=== PATIENT | female | born 1930 | race Caucasian/White ===

== ENCOUNTER 2020-05-07 08:52 | Inpatient (IN) ==
[2020-05-07 09:18] LABS: Hematocrit 44.7 % (37.0-47.0); Hemoglobin 14.9 gm/dL (12.5-16.0); Mean Cell Volume 99.1 fl (78-100); Mean Corpuscular Hgb Conc 33.3 g/dl (32-36); Neutrophil % 81.7 % (42-75.0); Platelet Count 255 K/mm3 (150-450); Red Blood Count 4.51 M/mm3 (4.2-5.4); Red Cell Distribution Width 12.9 % (11.5-14.0); White Blood Count 13.5 K/mm3 (4.0-10.5)
[2020-05-07 09:22] LABS: Urine Bilirubin 1 mg/dl (NEGATIVE); Urine Blood 50 /ul (NEGATIVE); Urine Ketone 5 mg/dL (NEGATIVE); Urine Nitrite Negative (NEGATIVE); Urine Protein 30 mg/dL (NEGATIVE); Urine Specific Gravity >=1.030 SP.GR. (1.005-1.010); Urine Urobilinogen Normal (NORMAL)
[2020-05-07 09:35] LABS: Urine Appearance Cloudy (CLEAR); Urine Color Yellow; Urine WBC 25-50 /hpf (0-5)
[2020-05-07 09:36] LABS: Urine Bacteria 4+; Urine RBC 25-50 /hpf (0-5)
[2020-05-07] MEDS ORDERED: NORMAL SALINE 1,000 ML IV ONE (09:39)
[2020-05-07 09:42] LABS: Prothrombin Time (Patient) 10.4 Seconds (9.1-10.7)
[2020-05-07 09:43] LABS: Partial Thrombolplastin Time 22.9 Seconds (24-32)
[2020-05-07 09:45] LABS: Albumin * 4.3 gm/dl (3.4-5.0); Anion Gap 16.2 mmol/L (6.8-13.8); BUN/Creatinine Ratio 18.6 (9.0-21.6); Bilirubin, Total 0.8 mg/dL (0.0-1.1); Ca. Corrected For Albumin 8.6 mg/dL (8.4-10.2); Calcium * 9.2 mg/dL (7.9-10.9); Carbon Dioxide 24.2 mmol/L (24-32.6); Potassium 3.4 mmol/L (3.4-4.6); Total Protein 8.4 gm/dL (6.2-8.2)
--- NOTE | 2020-05-07 09:58 | ERNOTE ---
Neuro HPI ER Record Date of Service: 05/07/20 Presenting Symptoms: impaired speech Time Seen by Provider: 05/07/20 09:13 Source: patient Exam Limitations: no limitations Immunizations: IMMUNIZATION HX Immunizations Up to Date Yes Allergies/Adverse Reactions: Allergies Allergy/AdvReac Type Severity Reaction Status Date / Time tetanus toxoid, adsorbed Allergy Intermediate swollen arm Verified 05/07/20 09:19 Home Medications: HOME MEDICATIONS aspirin 81 mg tablet,delayed release 81 mg PO DAILY 12/15/17 [Last Taken Unknown] levetiracetam 500 mg tablet 500 mg PO BID tab 12/15/17 [Last Taken Unknown] amlodipine 10 mg tablet See Rx Instructions .ROUTE .COMPLEX #90 tab 10/22/19 [Last Taken Unknown] metoprolol tartrate 50 mg tablet 75 mg PO BID #90 tab 01/11/20 [Last Taken Unknown] digoxin 125 mcg (0.125 mg) tablet 125 mcg PO DAILY #90 tab 03/27/20 [Last Taken Unknown] - History of Present Illness Narrative: Patient presents to the ED for trouble speaking. She thinks that this happened sometime overnight. Last time family knew her well was 2 days ago. She lives at home alone. Trouble with speech. No pain. Denies N/T/W in the extremities. NO trauma. Never had anything like this before. Onset: other - last known well 2 days ago but she thinks it happened last night Severity: moderate - Character of Deficits Additional Deficits: Absent: vision problems, weakness Associated Symptoms: Denies: fever/chills, sweating, chest pain, headache, altered mental status, unresponsive Prior Treament: Denies: recently seen, similar symptoms before Review of Systems - Narrative Narrative: Unable to obtain ROS d/t patient condition/dysarthria Medical History (Last Reviewed 05/07/20 @ 09:49 by Sunny Tang MD) History of restless legs syndrome (Chronic) Onset Date: Unknown Osteoarthritis (Chronic) Onset Date: Unknown Anticoagulant long-term use (Chronic) Onset Date: ~03/26/11 Insomnia disorder (Chronic) Onset Date: ~03/26/11 Impaired fasting glucose (Chronic) Onset Date: Unknown Hypertension (Chronic) Onset Date: Unknown Hyperlipidemia (Chronic) Onset Date: ~07/21/07 Glaucoma (Chronic) Onset Date: Unknown History of gastroesophageal reflux (GERD) (Chronic) Onset Date: Unknown UTI (urinary tract infection) (Chronic) Onset Date: Unknown frequent Dysphagia (Chronic) Onset Date: Unknown CAD (coronary artery disease) (Chronic) Onset Date: ~03/26/11 Atrial fibrillation (Chronic) Onset Date: Unknown Aphasia (Chronic) Onset Date: Unknown Myocardial infarction Onset Date: ~08/17/10 during left knee surgery Refused influenza vaccine Onset Date: ~03/22/18 Subdural hematoma Onset Date: ~01/2014 caused by a fall and pt being on therapeutic warfarin History of seizures Onset Date: Unknown Sepsis Onset Date: Unknown due to serratia Vitamin B12 deficiency Onset Date: Unknown Surgical History: Surgical History (Last Reviewed 05/07/20 @ 09:49 by Sunny Tang MD) Bone abscess Onset Date: ~03/1983 Right lower leg History of craniotomy Onset Date: ~01/2014 [place] hole and craniotomy due to a traumatic large subdural hematoma that was caused by a fall and pt being on therapeutic warfarin. 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 Mother , unknown age; unknown cause of No problems noted. 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 level of school completed/degree received: Associate degree: occupat Service: No Tobacco: Smoking Status: Never smoker Alcohol: alcohol intake: never Substance Use: substance use type: unknown Dietary Habits: caffeine: Yes Physical Exam - Physical Exam General Appearance: Present: alert, no apparent distress Head Exam: Present: normal inspection, no evidence of injury Eye Exam: Normal inspection: bilateral, PERRL: bilateral Ears, Nose, Throat: Present: dry mucous membranes - NIH - 5 Neck: Present: normal inspection Respiratory: Present: no respiratory distress, normal breath sounds, no acces garland muscle use, lungs clear Cardiovascular/Chest: Present: regular rate, rhythm, normal peripheral pulses Gastrointestinal/Abdominal: Present: normal bowel sounds, nontender, nondistended, soft Back Exam: Absent: CVA tenderness (R), CVA tenderness (L) Extremity Exam: Absent: joint swelling Neurological Exam: Present: alert, other - She has dysarthria, left facial droop with presenved forehead strength. Skin Exam: Present: normal color, warm/dry Progress - Results and Orders Patient's Lab Results:: I have reviewed the patient's lab results. - Vital Signs Patient's Vital Signs:: I have reviewed the patient's vital signs. Vital Signs: Vital Signs 05/07/20 08:52 05/07/20 09:26 Temperature 36 C Pulse Rate 96 92 Respiratory Rate 21 H Blood Pressure 141/67 O2 Sat by Pulse Oximetry 98 - EKG EKG #1 EKG: atrial fibrillation EKG read: Interp. by me EKG Comments: A FIB rate 86. Non-specific ST/T wave changes, likely digoxin. No clear STEMI - X-Ray X-Ray #1 X-Ray: chest Interpretation: Interp. by me X-ray Comments: I personally reviewed CXR image as well as official radiology report - CT/Ultrasound CT/Ultrasound Narrative: I reviewed official radiology report for CT head - Progress/Reassessment Chief Complaint: CerebroVascular Accident Progress Note-Subjective: 05/07/20 10:[address] Estrella who will admit. Patient understands need for admission. NPO for now, I have ordered swallow study. UTI treated. Clinically has had a stroke. Out of any treatment window. I discussed warning signs and reasons to return as well as the need for close f/u. Departure Clinical Impression: Stroke-like symptoms, UTI (urinary tract infection) - Departure Disposition: Still a patient Condition: Fair Referrals: Dorothy Kwok MD [Primary Care Provider] -
[2020-05-07] MEDS ORDERED: cefTRIAXone SODIUM 1,000 MG/100 ML BAG IV ONE (10:03)
[2020-05-07] MEDS ORDERED: ACETAMINOPHEN 500 MG TABLET PO PRN (12:19)
[2020-05-07] MEDS ORDERED: LORazepam 2 MG/ML DISP.SYRIN IM ONE (12:42)
[2020-05-07] MEDS ORDERED: LORazepam 2 MG/ML DISP.SYRIN IV ONE (12:42)
--- NOTE | 2020-05-07 13:01 | HP ---
Chief Complaint - Chief Complaint Date of Service: 05/07/20 Time of Service: 12:43 Chief Complaint: I have weakness on my left side. History of Present Illness: 89-year-old female with past medical history of hypertension, hyperlipidemia, atrial fibrillation, glaucoma, CAD, previous [place], CKD3, was evaluated in the ER after she was brought in by EMS for strokelike symptoms. The patient reports going to bed asymptomatic last night but during the night she developed weakness on her left side which affected her upper and lower extremity and speech. Once in the ER the patient was noted to have facial droop and left hemiparesis. She is completely awake and alert in response to verbal and tactile stimuli. The patient was able to provide a history but she has severe Broca's aphasia which makes it difficult to understand her. The patient lives alone and family reports the last time she was noted to be normal was 2 days ago however upon questioning her she reports being normal until last night. Based on the history it is very apparent that the patient is outside of the therapeutic window for administration of clot busting medications. It is unclear at the moment whether or not the patient is able to safely swallow so f or now we will treat her with IV or IM medications and consult the speech therapist for an evaluation. The patient maintained stable vitals and is resting comfortably for now . Brain MRI has been ordered for further evaluation. Of note the patient has a long history of atrial fibrillation but due to a subdural hematoma secondary to a fall that occurred several years ago and her persistent high fall risk, she has not been on anticoagulation for multiple years. It is likely that this increased her risk for stroke. After evaluating the patient at bedside we will determine best anticoagulants and antiplatelet therapy for her, especially after we get results from the speech therapist. Incidentally the patient was also found to have a UTI on the urinalysis done in the ER, so we will also treat her with IV antibiotics. Medical History (Last Reviewed 05/07/20 @ 09:49 by Sunny Tang MD) History of restless legs syndrome (Chronic) Onset Date: Unknown Osteoarthritis (Chronic) Onset Date: Unknown Anticoagulant long-term use (Chronic) Onset Date: ~03/26/11 Insomnia disorder (Chronic) Onset Date: ~03/26/11 Impaired fasting glucose (Chronic) Onset Date: Unknown Hypertension (Chronic) Onset Date: Unknown Hyperlipidemia (Chronic) Onset Date: ~07/21/07 Glaucoma (Chronic) Onset Date: Unknown History of gastroesophageal reflux (GERD) (Chronic) Onset Date: Unknown UTI (urinary tract infection) (Chronic) Onset Date: Unknown frequent Dysphagia (Chronic) Onset Date: Unknown CAD (coronary artery disease) (Chronic) Onset Date: ~03/26/11 Atrial fibrillation (Chronic) Onset Date: Unknown Aphasia (Chronic) Onset Date: Unknown Myocardial infarction Onset Date: ~08/17/10 during left knee surgery Refused influenza vaccine Onset Date: ~03/22/18 Subdural hematoma Onset Date: ~01/2014 caused by a fall and pt being on therapeutic warfarin History of seizures Onset Date: Unknown Sepsis Onset Date: Unknown due to serratia Vitamin B12 deficiency Onset Date: Unknown Surgical History: Surgical History (Last Reviewed 05/07/20 @ 09:49 by Sunny Tang MD) Bone abscess Onset Date: ~03/1983 Right lower leg History of craniotomy Onset Date: ~01/2014 [place] hole and craniotomy due to a traumatic large subdural hematoma that was caused by a fall and pt being on therapeutic warfarin. done at [facility] History of left knee replacement Onset Date: ~08/17/10 [facility] History of partial hysterectomy Onset Date: ~12/1967 Skin cancer of face Onset Date: ~07/2013 nose and upper lip area, left cheek Family History: Family History (Last Reviewed 05/07/20 @ 09:49 by Sunny Tang MD) Father , age unknown; unknown cause of No problems noted. Mother , unknown age; unknown cause of No problems noted. 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 level of school completed/degree received: Associate degree: occupat Service: No Tobacco: Smoking Status: Never smoker Alcohol: alcohol intake: never Substance Use: substance use type: unknown Dietary Habits: caffeine: Yes Peds Patient Hx - Developmental: No Pertinent Hx Peds Patient Hx - Medical: No Pertinent Hx Peds Patient Hx - Cardiac/Respiratory: No Pertinent Hx Peds Patient Hx - Surgical: No Surgical History Patient History - Cancer: No Hx of Cancer Review Of Systems (GEN) - Review of Systems Generalized/Overall Review: Present: Weakness EENTM: Present: No Symptoms Reported Respiratory: Present: No Symptoms Reported Cardiac: Present: No Symptoms Reported Abdominal: Present: No Symptoms Reported Genitourinary: Present: No Symptoms Reported Musculoskeletal: Present: No Symptoms Reported Neurological: Present: Weakness, Other - Left-sided weakness Skin: Present: No Symptoms Reported Endocrine: Present: No Symptoms Reported Immunizations: IMMUNIZATION HX Immunizations Up to Date Yes Allergies/Adverse Reactions: Allergies Allergy/AdvReac Type Severity Reaction Status Date / Time tetanus toxoid, adsorbed Allergy Intermediate swollen arm Verified 05/07/20 09:19 Home Medications: HOME MEDICATIONS aspirin 81 mg tablet,delayed release 81 mg PO DAILY 12/15/17 [Last Taken Unknown] levetiracetam 500 mg tablet 500 mg PO BID tab 12/15/17 [Last Taken Unknown] amlodipine 10 mg tablet See Rx Instructions .ROUTE .COMPLEX #90 tab 10/22/19 [Last Taken Unknown] metoprolol tartrate 50 mg tablet 75 mg PO BID #90 tab 01/11/20 [Last Taken Unknown] digoxin 125 mcg (0.125 mg) tablet 125 mcg PO DAILY #90 tab 03/27/20 [Last Taken Unknown] Exam - Exam Vital Signs: Vital Signs - Last Taken Temp 36 C 05/07/20 11:25 Pulse 97 05/07/20 11:25 Resp 19 05/07/20 11:25 BP 135/53 05/07/20 11:25 Pulse Ox 100 05/07/20 11:25 Constitutional: Present: Alert, Oriented x3, Cooperative, Well developed, Well n ourished, No distress, Elderly ENT Exam: Present: normal ENT inspection, hard of hearing Eye Exam: bilateral eye: normal inspection, PERRL, EOMI Neck: Present: non-tender, full range of motion, supple, normal inspection, trachea midline Back Exam: Present: normal inspection, no CVA tenderness, no vertebral tenderness Breasts: Present: Exam deferred, Nontender Respiratory: Present: chest non-tender, lungs clear, normal breath sounds, no respiratory distress, no accessory muscle use Cardiovascular/Chest: Present: normal peripheral pulses, no chest tenderness, no edema, no gallop, no JVD, no murmur, irregularly irregular Abdomen: Present: Normal bowel sounds, soft, nontender, nondistended, no rebound tenderness, no hepatospenomegaly, no masses /Rectal: Present: Exam deferred Extremity: Present: normal range of motion, non-tender, normal inspection, no pedal edema, no calf tenderness, normal capillary refill, pelvis stable Skin Exam: Present: normal color, warm/dry, no cyanosis Lymphatic: Present: no adenopathy Neurologic: Present: alert, normal mood/affect, oriented x 3, abnormal director of provider relations II- XII - Left hemiparesis, aphasia, facial droop, motor weakness Appearance: Present: appropriate appearance, appropriate insight, neat, no memory impairment Eye contact: Present: cooperative, good eye contact, normal speech Thoughts: Present: normal thought pattern, no apparent hallucination Diagnostic Studies: Abnormal Lab Results 05/07/20 05/07/20 05/07/20 Range/Units 09:15 09:16 09:16 WBC 13.5 H (4.0-10.5) K/mm3 MCH 33.0 H (27-31) pg Immature Gran % (Auto) 0.50 H (0.001-0.429) % Immature Gran # (Auto) 0.07 H (0.000-0.0310) K/mm3 Neutrophils % 81.7 H (42-75.0) % Lymphocytes % 11.0 L (20-51) % Neutrophils # 11.0 H (1.3-6.0) K/mm3 Lymphocytes # 1.49 L (1.5-3.5) k/mm3 ESR 26 H (0-15) mm/hr PTT ([place]athon) (24-32) Seconds Anion Gap (6.8-13.8) mmol/L BUN (3-23) mg/dL Est GFR (Non-Af Amer) (60-130) mL/min Random Glucose (70-110) mg/dL Total Protein (6.2-8.2) gm/dL Urine Protein 30 H (NEGATIVE) mg/dL Urine Blood 50 H (NEGATIVE) /ul Urine Bilirubin 1 H (NEGATIVE) mg/dl Ur Leukocyte Esterase 25 H (NEGATIVE) /ul Urine RBC 25-50 H (0-5) /hpf Urine WBC 25-50 H (0-5) /hpf Urine Bacteria 4+ H (NONE) 05/07/20 05/07/20 Range/Units 09:16 09:16 WBC (4.0-10.5) K/mm3 MCH (27-31) pg Immature Gran % (Auto) (0.001-0.429) % Immature Gran # (Auto) (0.000-0.0310) K/mm3 Neutrophils % (42-75.0) % Lymphocytes % (20-51) % Neutrophils # (1.3-6.0) K/mm3 Lymphocytes # (1.5-3.5) k/mm3 ESR (0-15) mm/hr PTT (Marathon) 22.9 L (24-32) Seconds Anion Gap 16.2 H (6.8-13.8) mmol/L BUN 24 H (3-23) mg/dL Est GFR (Non-Af Amer) 41 L D (60-130) mL/min Random Glucose 198 H (70-110) mg/dL Total Protein 8.4 H (6.2-8.2) gm/dL Urine Protein (NEGATIVE) mg/dL Urine Blood (NEGATIVE) /ul Urine Bilirubin (NEGATIVE) mg/dl Ur Leukocyte Esterase (NEGATIVE) /ul Urine RBC (0-5) /hpf Urine WBC (0-5) /hpf Urine Bacteria (NONE) Laboratory Results WBC 13.5 K/mm3 (4.0-10.5) H 05/07/20 09:16 RBC 4.51 M/mm3 (4.2-5.4) 05/07/20 09:16 Hgb 14.9 gm/dL (12.5-16.0) 05/07/20 09:16 Hct 44.7 % (37.0-47.0) 05/07/20 09:16 MCV 99.1 fl (78-100) 05/07/20 09:16 MCH 33.0 pg (27-31) H 05/07/20 09:16 MCHC 33.3 g/dl (32-36) 05/07/20 09:16 RDW 12.9 % (11.5-14.0) 05/07/20 09:16 Plt Count 255 K/mm3 (150-450) 05/07/20 09:16 MPV 10.0 fl (8-12.5) 05/07/20 09:16 Immature Gran % (Auto) 0.50 % (0.001-0.429) H 05/07/20 09:16 Immature Gran # (Auto) 0.07 K/mm3 (0.000-0.0310) H 05/07/20 09:16 Neutrophils % 81.7 % (42-75.0) H 05/07/20 09:16 Lymphocytes % 11.0 % (20-51) L 05/07/20 09:16 Monocytes % 5.7 % (0.0-9) 05/07/20 09:16 Eosinophils % 0.7 % (0.0-3.0) 05/07/20 09:16 Basophils % 0.4 % (0.0-1.0) 05/07/20 09:16 Nucleated RBC % 0.0 k/mm3 (0-1) 05/07/20 09:16 Neutrophils # 11.0 K/mm3 (1.3-6.0) H 05/07/20 09:16 Lymphocytes # 1.49 k/mm3 (1.5-3.5) L 05/07/20 09:16 Monocytes # 0.8 k/mm3 (0.0-1.0) 05/07/20 09:16 Eosinophils # 0.1 k/mm3 (0.0-0.7) 05/07/20 09:16 Absolute Basophils 0.1 k/mm3 (0.0-0.1) 05/07/20 09:16 ESR 26 mm/hr (0-15) H 05/07/20 09:16 PT 10.4 Seconds (9.1-10.7) 05/07/20 09:16 INR (Anticoag Therapy) 1.00 INR (0.92-1.08) 05/07/20 09:16 PTT ([place]ena) 22.9 Seconds (24-32) L 05/07/20 09:16 Sodium 140 mmol/L (132-142) 05/07/20 09:16 Plasma Sodium 142 mmol/L (130-142) 05/07/20 09:16 Potassium 3.4 mmol/L (3.4-4.6) 05/07/20 09:16 Chloride 103 mmol/L (97-106) 05/07/20 09:16 Carbon Dioxide 24.2 mmol/L (24-32.6) 05/07/20 09:16 Anion Gap 16.2 mmol/L (6.8-13.8) H 05/07/20 09:16 BUN 24 mg/dL (3-23) H 05/07/20 09:16 Creatinine 1.29 mg/dL (0.4-1.4) 05/07/20 09:16 Est GFR (Non-Af Amer) 41 mL/min (60-130) L D 05/07/20 09:16 BUN/Creatinine Ratio 18.6 (9.0-21.6) 05/07/20 09:16 Random Glucose 198 mg/dL (70-110) H 05/07/20 09:16 Calcium 9.2 mg/dL (7.9-10.9) 05/07/20 09:16 Calcium Adj for Albumin 8.6 mg/dL (8.4-10.2) 05/07/20 09:16 Total Bilirubin 0.8 mg/dL (0.0-1.1) 05/07/20 09:16 AST 23 U/L (0-48) 05/07/20 09:16 ALT 20 U/L (19-67) 05/07/20 09:16 Alkaline Phosphatase 109 U/L (50-170) 05/07/20 09:16 Total Protein 8.4 gm/dL (6.2-8.2) H 05/07/20 09:16 Albumin 4.3 gm/dl (3.4-5.0) 05/07/20 09:16 Urine Color Yellow 05/07/20 09:15 Urine Appearance Cloudy (CLEAR) 05/07/20 09:15 Urine pH 6.0 pH (5.0-7.0) 05/07/20 09:15 Ur Specific [place] >=1.030 SP.GR. (1.005-1.010) 05/07/20 09:15 Urine Protein 30 mg/dL (NEGATIVE) H 05/07/20 09:15 Urine Glucose (UA) Negative mg/dL (NEGATIVE) 05/07/20 09:15 Urine Ketones 5 mg/dL (NEGATIVE) 05/07/20 09:15 Urine Blood 50 /ul (NEGATIVE) H 05/07/20 09:15 Urine Nitrate Negative (NEGATIVE) 05/07/20 09:15 Urine Bilirubin 1 mg/dl (NEGATIVE) H 05/07/20 09:15 Urine Urobilinogen Normal EU/dl (NORMAL) 05/07/20 09:15 Ur Leukocyte Esterase 25 /ul (NEGATIVE) H 05/07/20 09:15 Urine RBC 25-50 /hpf (0-5) H 05/07/20 09:15 Urine WBC 25-50 /hpf (0-5) H 05/07/20 09:15 Ur Epithelial Cells 0-5 /hpf (0-5) 05/07/20 09:15 Urine Bacteria 4+ (NONE) H 05/07/20 09:15 Urine Culture Comments Culture to follow 05/07/20 09:15 Digoxin 0.8 ng/mL (0.5-2.0) 05/07/20 09:16 SARS-CoV-2 (PCR) Not detected (NotDetected) 05/07/20 10:07 Assessment/Plan - Narrative Narrative: Patient was evaluated medical chart was reviewed and decision to admit for observation on the [facility] floor for diagnosis of CVA was made. Brain MRI has been ordered after the patient was sedated to relax her for the procedure, we will follow-up with the results. In the meantime a speech therapist has been consulted for evaluation of swallow function and speech, we will follow-up the results before ordering her diet and other medications from the stroke protocol and routine meds. We will keep the patient on telemetry monitoring and continue to watch her closely. - Assessment/Plan (1) Stroke-like symptoms Problem: Acute (2) Hypertension Problem: Chronic Qualifiers: (3) Hyperlipidemia Problem: Chronic Qualifiers: (4) Glaucoma Problem: Chronic (5) History of gastroesophageal reflux (GERD) Problem: Chronic (6) UTI (urinary tract infection) Problem: Acute (7) CAD (coronary artery disease) Problem: Chronic Qualifiers: (8) Atrial fibrillation Problem: Chronic Qualifiers: (9) Aphasia Problem: Chronic (10) Seizure disorder Problem: Acute
[2020-05-07] MEDS ORDERED: METOPROLOL TARTRATE 50 MG TABLET PO SCH (14:45)
[2020-05-07] MEDS ORDERED: levETIRAcetam 500 MG TABLET PO SCH (14:45)
[2020-05-07] MEDS: ASPIRIN 325 MG TABLET.DR PO SCH (14:56)
[2020-05-07] MEDS: PANTOPRAZOLE SODIUM 40 MG in NORMAL SALINE 100 ML IV SCH (14:56)
[2020-05-07] MEDS: ENOXAPARIN SODIUM 40 MG/0.4 ML SYRG SC SCH (14:56)
[2020-05-07] MEDS: DIGOXIN 0.125 MG TABLET PO SCH (15:07)
[2020-05-07] MEDS: METOPROLOL TARTRATE 25 MG TABLET PO SCH ×2 (15:14→20:27)
[2020-05-07] MEDS: amLODIPine BESYLATE 10 MG TABLET PO SCH (15:15)
[2020-05-07] MEDS: ROSUVASTATIN CALCIUM 10 MG TABLET PO SCH (20:26)
[2020-05-07] MEDS ORDERED: ROSUVASTATIN CALCIUM 20 MG TABLET PO SCH (21:00)
[2020-05-08] MEDS: PANTOPRAZOLE SODIUM 40 MG in NORMAL SALINE 100 ML IV SCH ×3 (00:01→23:53)
[2020-05-08 06:36] LABS: Hematocrit 42.9 % (37.0-47.0); Hemoglobin 14.4 gm/dL (12.5-16.0); Mean Corpuscular Hemoglobin 33.6 pg (27-31); Mean Corpuscular Hgb Conc 33.6 g/dl (32-36); Mean Platelet Volume 10.1 fl (8-12.5); Neutrophil # 8.4 K/mm3 (1.3-6.0); Neutrophil % 73.8 % (42-75.0); Platelet Count 229 K/mm3 (150-450); Red Blood Count 4.29 M/mm3 (4.2-5.4); Red Cell Distribution Width 13.1 % (11.5-14.0); White Blood Count 11.4 K/mm3 (4.0-10.5)
[2020-05-08 07:34] LABS: Albumin * 3.9 gm/dl (3.4-5.0); Anion Gap 11.9 mmol/L (6.8-13.8); BUN/Creatinine Ratio 15.7 (9.0-21.6); Bilirubin, Total 1.2 mg/dL (0.0-1.1); Ca. Corrected For Albumin 8.8 mg/dL (8.4-10.2); Carbon Dioxide 26.8 mmol/L (24-32.6); Potassium 3.7 mmol/L (3.4-4.6); Total Protein 7.7 gm/dL (6.2-8.2)
[2020-05-08] MEDS: DIGOXIN 0.125 MG TABLET PO SCH (08:05)
[2020-05-08] MEDS: amLODIPine BESYLATE 10 MG TABLET PO SCH (08:05)
[2020-05-08] MEDS: ASPIRIN 325 MG TABLET.DR PO SCH (08:05)
[2020-05-08] MEDS: METOPROLOL TARTRATE 25 MG TABLET PO SCH ×2 (08:06→20:26)
[2020-05-08] MEDS: ENOXAPARIN SODIUM 40 MG/0.4 ML SYRG SC SCH (12:42)
--- NOTE | 2020-05-08 13:49 | PN ---
Subjective - Date and Time Seen Date: 05/08/20 Time: 13:41 Subjective Narrative: I feel better but speech and leftsided weakness is still there Objective Objective Narrative: 89-year-old female admitted for acute ischemic CVA with left hemiparesis and dysarthria was evaluated at bedside and was found to be afebrile and in no acute distress. Patient has shown some clinical improvement, her neurologic deficits although they persist but appears to be improving. The patient maintains stable vitals and is in good spirits. Discharge planning is underway and the plan is to discharge the patient to [facility] rehab facility, will also discharged with a consultation to neurology for further management. Labs this morning showed significant improvement in her renal function and a downward trend of her WBCs. - Review of Systems Generalized/Overall Review: Reports: No Symptoms Reported EENTM: Reports: No Symptoms Reported Respiratory: Reports: No Symptoms Reported Cardiac: Reports: No Symptoms Reported Abdominal: Reports: No Symptoms Reported Genitourinary Symptoms: Reports: No Symptoms Reported Musculoskeletal Complaints: Reports: No Symptoms Reported Neurological: Reports: Weakness, Pre-existing Deficit - Left-sided weakness, Other - Difficulty with speech Skin: Reports: No Symptoms Reported Endocrine: Reports: No Symptoms Reported - Vitals Vitals: Last Vital Signs Temp 36.1 C 05/08/20 12:54 Pulse 65 05/08/20 12:54 Resp 16 05/08/20 12:54 BP 121/92 H 05/08/20 12:54 Pulse Ox 96 05/08/20 12:54 - Abnormal Lab Findings Abnormal Lab Findings: Abnormal Lab Results 05/08/20 05/08/20 Range/Units 06:34 06:34 WBC 11.4 H (4.0-10.5) K/mm3 MCH 33.6 H (27-31) pg Immature Gran % (Auto) 0.50 H (0.001-0.429) % Immature Gran # (Auto) 0.06 H (0.000-0.0310) K/mm3 Lymphocytes % 15.8 L (20-51) % Neutrophils # 8.4 H (1.3-6.0) K/mm3 Total Bilirubin 1.2 H (0.0-1.1) mg/dL ALT 18 L (19-67) U/L - Exam Constitutional: Present: Alert, Oriented x3, Cooperative, Well developed, Well nourished, No distress, Elderly ENT Exam: Present: normal ENT inspection, hard of hearing Neck: Present: non-tender, full range of motion, supple, normal inspection, trachea midline Breasts: Present: Exam deferred Respiratory: Present: chest non-tender, lungs clear, normal breath sounds, no respiratory distress, no accessory muscle use Cardiovascular/Chest: Present: normal peripheral pulses, no chest tenderness, no edema, no gallop, no JVD, no murmur, irregularly irregular Abdomen: Present: Normal bowel sounds, soft, nontender, nondistended, no rebound tenderness, no hepatospenomegaly, no masses /Rectal: Present: Exam deferred Extremity: Present: non-tender, normal inspection, no pedal edema, no calf tenderness, normal capillary refill Skin Exam: Present: normal color, warm/dry, no cyanosis Lymphatic: Present: no adenopathy Neurologic: Present: alert, abnormal bacon skin lifter II-XII, aphasia, motor weakness Appearance: Present: appropriate appearance, appropriate insight, neat, no memory impairment Eye contact: Present: cooperative, good eye contact Thoughts: Present: normal thought pattern, no apparent hallucination Assessment/Plan Plan Narrative: We will continue intrahospital PT and OT and continue treating the patient with IV antibiotics. Tomorrow we will discharge patient to [facility] rehab. - Problems/Diagnosis (1) Stroke-like symptoms Problem: Acute (2) Hypertension Problem: Chronic Qualifiers: (3) Hyperlipidemia Problem: Chronic Qualifiers: (4) Glaucoma Problem: Chronic (5) History of gastroesophageal reflux (GERD) Problem: Chronic (6) UTI (urinary tract infection) Problem: Acute (7) CAD (coronary artery disease) Problem: Chronic Qualifiers: (8) Atrial fibrillation Problem: Chronic Qualifiers: (9) Aphasia Problem: Chronic (10) Seizure disorder Problem: Acute
[2020-05-08] MEDS: ROSUVASTATIN CALCIUM 10 MG TABLET PO SCH (20:26)
[2020-05-09] MEDS: ASPIRIN 325 MG TABLET.DR PO SCH (08:35)
[2020-05-09] MEDS: METOPROLOL TARTRATE 25 MG TABLET PO SCH (08:35)
[2020-05-09] MEDS: amLODIPine BESYLATE 10 MG TABLET PO SCH (08:35)
[2020-05-09] MEDS: DIGOXIN 0.125 MG TABLET PO SCH (08:35)
--- NOTE | 2020-05-09 09:28 | DS ---
(1) Stroke-like symptoms Problem: Acute (2) Hypertension Problem: Chronic Qualifiers: (3) Hyperlipidemia Problem: Chronic Qualifiers: (4) Glaucoma Problem: Chronic (5) History of gastroesophageal reflux (GERD) Problem: Chronic (6) UTI (urinary tract infection) Problem: Acute (7) CAD (coronary artery disease) Problem: Chronic Qualifiers: (8) Atrial fibrillation Problem: Chronic Qualifiers: (9) Aphasia Problem: Chronic (10) Seizure disorder Problem: Acute Date of Discharge:: 05/09/20 Hospital Course: 89-year-old female admitted for acute CVA with left hemiparesis was evaluated at bedside this morning was found to be afebrile and in no acute distress. Patient has tolerated PT and OT without any major issues and is ready to be transferred to [facility] rehab facility to continue her rehabilitation from her stroke. She maintained stable vitals during the hospitalization and denies any new symptoms or concerns. Her family is in agreement that she go to the facility so we will discharge her with instructions to follow-up with her PCP and with neurology. The patient was reminded that for now she is to stay on high-dose aspirin only due to her contraindications to chronic anticoagulation due to recurrent falls and high bleeding risk. This is to be discussed further with her neurologist and PCP. Procedures Performed: none Results and Findings: Lab Pending Results 05/07/20 09:15: Urine Color Yellow, Urine Appearance Cloudy, Urine pH 6.0, Ur Specific [place] >=1.030, Urine Protein 30 H, Urine Glucose (UA) Negative, Urine Ketones 5, Urine Blood 50 H, Urine Nitrate Negative, Urine Bilirubin 1 H, Urine Urobilinogen Normal, Ur Leukocyte Esterase 25 H, Urine RBC 25-50 H, Urine WBC 25-50 H, Ur Epithelial Cells 0-5, Urine Bacteria 4+ H, Urine Culture Comments Culture to follow 05/07/20 09:16: WBC 13.5 H, RBC 4.51, Hgb 14.9, Hct 44.7, MCV 99.1, MCH 33.0 H, MCHC 33.3, RDW 12.9, Plt Count 255, MPV 10.0, Immature Gran % (Auto) 0.50 H, Immature Gran # (Auto) 0.07 H, Neutrophils % 81.7 H, Lymphocytes % 11.0 L, Monocytes % 5.7, Eosinophils % 0.7, Basophils % 0.4, Nucleated RBC % 0.0, Neutrophils # 11.0 H, Lymphocytes # 1.49 L, Monocytes # 0.8, Eosinophils # 0.1, Absolute Basophils 0.1 05/07/20 09:16: ESR 26 H 05/07/20 09:16: PT 10.4, INR (Anticoag Therapy) 1.00, PTT (Jimena) 22.9 L 05/07/20 09:16: Sodium 140, Plasma Sodium 142, Potassium 3.4, Chloride 103, Carbon Dioxide 24.2, Anion Gap 16.2 H, BUN 24 H, Creatinine 1.29, Est GFR (Non- Af Amer) 41 L D, BUN/Creatinine Ratio 18.6, Random Glucose 198 H, Calcium 9.2, Calcium Adj for Albumin 8.6, Total Bilirubin 0.8, AST 23, ALT 20, Alkaline Phosphatase 109, Total Protein 8.4 H, Albumin 4.3 05/07/20 09:16: Digoxin 0.8 05/07/20 10:07: SARS-CoV-2 (PCR) Not detected 05/08/20 06:34: WBC 11.4 H, RBC 4.29, Hgb 14.4, Hct 42.9, MCV 100.0, MCH 33.6 H, MCHC 33.6, RDW 13.1, Plt Count 229, MPV 10.1, Immature Gran % (Auto) 0.50 H, Immature Gran # (Auto) 0.06 H, Neutrophils % 73.8, Lymphocytes % 15.8 L, Monocytes % 7.9, Eosinophils % 1.6, Basophils % 0.4, Nucleated RBC % 0.0, Neutrophils # 8.4 H, Lymphocytes # 1.79, Monocytes # 0.9, Eosinophils # 0.2, Absolute Basophils 0.0 05/08/20 06:34: Sodium 140, Plasma Sodium 140, Potassium 3.7, Chloride 105, Carbon Dioxide 26.8, Anion Gap 11.9, BUN 13, Creatinine 0.83, Est GFR (Non-Af Amer) 69 D, BUN/Creatinine Ratio 15.7, Random Glucose 108 D, Calcium 9.0, Ca lcium Adj for Albumin 8.8, Total Bilirubin 1.2 H, AST 25, ALT 18 L, Alkaline Phosphatase 100, Total Protein 7.7, Albumin 3.9 Discharge Location: [facility] Disposition: Inpatient Rehab Facility Condition: Fair Face to Face Encounter completed per [facility] Guidelines: No Discharge Activity: Activity as tolerated Discharge Diet: [facility] soft Shelter Therapy: Physical Therapy, Occupation Therapy, Speech Therapy Referrals: Dorothy Kwok MD [Primary Care Provider] - Additional Patient Instructions (free text): To [facility] inpatient rehab unit. For PT, OT and ST to evaluate and treat. Prescriptions (Any new or edited meds): Aspirin [Aspirin Enteric Coated] 325 mg PO DAILY #90 tablet. Sulfamethoxazole/Trimethoprim [Bactrim Ds] 1 tab PO BID 3 Days #20 tab Rosuvastatin Calcium [Crestor] 10 mg PO HS #90 tablet Complete Home Medications List: Complete Home Medication List: levetiracetam 500 mg tablet 500 mg PO BID tab 12/15/17 metoprolol tartrate 50 mg tablet 75 mg PO BID #90 tab 01/11/20 digoxin 125 mcg (0.125 mg) tablet 125 mcg PO DAILY #90 tab 03/27/20 amLODIPine BESYLATE [Norvasc] 10 mg PO DAILY 05/07/20 Aspirin [Aspirin Enteric Coated] 325 mg PO DAILY #90 tablet. 05/09/20 Rosuvastatin Calcium [Crestor] 10 mg PO HS #90 tablet 05/09/20 Sulfamethoxazole/Trimethoprim [Bactrim Ds] 1 tab PO BID 3 Days #20 tab 05/09/20
[2020-05-09 11:42] VITALS: BP 125/63
== END 2020-05-09 12:29 | disposition home health service (06) | DRG 65 ==
LOC: MS 08:52 → ER 08:52 → MS 11:25
PROVIDERS: ADMIT Family Medicine; ATTEND Family Medicine
DX: N39.0 Urinary tract infection, site not specified; E78.5 Hyperlipidemia, unspecified; R47.01 Aphasia; G81.94 Hemiplegia, unspecified affecting left nondominant side; G40.909 Epilepsy, unspecified, not intractable, without status epilepticus; I48.20 Chronic atrial fibrillation, unspecified; I25.10 Atherosclerotic heart disease of native coronary artery without angina pectoris; I10 Essential (primary) hypertension; I63.9 Cerebral infarction, unspecified